=== PATIENT | female | born 1970 | race Caucasian/White ===

== ENCOUNTER 2016-12-01 12:37 | Emergency (ER) | payer BC, OTHER ==
[~2016-12-01] VITALS: Ht 154.9 cm; Wt 54.4 kg
[2016-12-01 12:45] VITALS: BP 145/82; PULSE 88; RESP 16; TEMP 98.4; O2SAT 100
--- NOTE | 2016-12-01 12:45 | NUR ---
Placed in room 6 . Placed on cardiac cath lab technologist, blood pressure machine and pulse oximeter. To gown for exam. Side rails up. Report given to Dany SAUCEDO.
--- NOTE | 2016-12-01 12:55 | NUR ---
ER Dr. Bryan at bedside examining patient.
[2016-12-01 13:37] LABS: BASOPHILS # (AUTO) 0.1 K/uL (0.0-0.2); BASOPHILS % (AUTO) 1.1 % (0.0-2.0); EOSINOPHILS % (AUTO) 0.3 % (0.0-4.0); HEMATOCRIT 41.4 % (36-48); HEMOGLOBIN 13.8 g/dL (12.0-16.0); LYMPHOCYTES # (AUTO) 1.2 K/uL (1.0-5.5); LYMPHOCYTES % (AUTO) 20.9 % (20.5-51.5); MEAN CORPUSCULAR HEMOGLOBIN 29 pg (27-31); MEAN CORPUSCULAR HGB CONC 33 % (32-36); MEAN CORPUSCULAR VOLUME 88 fL (79.0-98.0); MONOCYTES # (AUTO) 0.4 K/uL (0.0-1.0); MONOCYTES % (AUTO) 7.4 % (1.7-9.3); NEUTROPHILS # (AUTO) 3.9 K/uL (1.8-7.7); NEUTROPHILS % (AUTO) 70.3 % (40.0-70.0); PLATELET COUNT (AUTO) 239 K/uL (130-430); RED BLOOD CELL COUNT(AUTO) 4.72 MIL/uL (4.2-6.2); WHITE BLOOD COUNT (AUTO) 5.6 K/uL (4.8-10.8)
[2016-12-01 13:41] LABS: CALCIUM 9.8 mg/dL (8.4-11.0); CREATININE 0.8 mg/dL (0.55-1.30); POTASSIUM 3.6 mmol/L (3.5-5.1)
[2016-12-01 13:46] LABS: ALBUMIN 4.7 g/dL (3.4-4.8); TOTAL BILIRUBIN 0.6 mg/dL (0.0-1.0)
[2016-12-01 13:55] LABS: PROTHROMBIN TIME 11.3 SECS (9.5-12.5)
--- NOTE | 2016-12-01 14:46 | NUR ---
Patient given written and verbal discharge instructions and verbalizes understanding. ER MD discussed with patient the results and treatment provided. Patient in stable condition. ID arm band removed. IV catheter removed intact and dressing applied, no active bleeding. Patient educated on pain management and to follow up with PMD. Pain Scale 0/10. Opportunity for questions provided and answered.
[2016-12-01 14:49] LABS: ABG TOTAL HEMOGLOBIN 14.2 G/dL (12.0-18.0); BLOOD GAS BASE EXCESS 0.3 mmol/L (-3.0-3.0); BLOOD GAS COHb% 0.3 % (0.5-1.5); BLOOD GAS HHB 2.2 % (0.0-6.0); BLOOD GAS PH 7.532 (7.350-7.450); BLOOD O2Hb% 97.3 % (94.0-97.0)
[2016-12-01 14:56] VITALS: BP 122/70; PULSE 74; RESP 18; TEMP 98; O2SAT 99
== END 2016-12-01 14:46 | disposition home or self-care (01) ==
LOC: SED 12:37
DX: R06.4 Hyperventilation (principal); Z86.73 Personal history of transient ischemic attack (TIA), and cerebral infarction without residual deficits
CPT/HCPCS: 36415; 36600; 71010; 80053; 82803-TC; 83880; 84484; 85025; 85379; 85610-TC; 85730-TC; 93005; 99285